=== PATIENT | female | born 1975 | race Caucasian/White ===

== ENCOUNTER 2019-01-27 11:17 | Outpatient (CLI) | payer OTHER ==
[~2019-01-27] VITALS: Ht 167.6 cm; Wt 91.7 kg
[~2019-01-27 11:17] MED LIST: PREN-93 PO
[2019-01-27 12:14] VITALS: BP 106/70; PULSE 111; RESP 18
[2019-01-27 12:15] VITALS: Ht 167.6 cm; Wt 91.7 kg
== END 2019-01-27 13:25 | disposition home or self-care (01) ==
LOC: L-D 11:17 → OBT 11:17
PROVIDERS: ATTEND Obstetrics & Gynecology
DX: O36.8130 Decreased fetal movements, third trimester, not applicable or unspecified (principal); Z3A.36 36 weeks gestation of pregnancy
CPT/HCPCS: 76818; Z7500; G0463